=== PATIENT | female | born 1965 | race Asian ===

== ENCOUNTER 2017-02-28 05:58 | Day surgery (SDC) | payer MEDICARE ==
[~2017-02-28] VITALS: Ht 154.9 cm; Wt 74.0 kg
[~2017-02-28 05:58] MED LIST: AMLO-147 PO; BENA40TA41 PO; LURA20TA PO; SERT50TA6 PO; SPIR50TA31 PO; labetalol PO
[2017-02-28] MEDS ORDERED: CARDURA (07:13)
[2017-02-28] MEDS ORDERED: MIDAZOLAM 1 MG/ML 2 ML INJ ONE (07:21)
[2017-02-28] MEDS ORDERED: PROPOFOL 20 ML ONE (07:21)
[2017-02-28] MEDS ORDERED: FENTAnyl 50 MCG/ML VIAL ONE (07:21)
--- NOTE | 2017-02-28 08:18 | OPPN ---
Date/Time of Note Date/Time of Note DATE: 02/28/17 TIME: 08:16 Operative Report Preoperative Diagnosis Screening Postoperative Diagnosis Small rectal polyp was removed Internal hemorrhoids Operation/Procedure Performed Colonoscopy and biopsy Anesthesia Type: MAC Estimated blood loss: none Transfusion Required: no Specimens Rectal polyp Grafts/Implants: none Complications: no GABRIEL LAMAS MD Feb 28, 2017 08:18
[2017-02-28 08:45] VITALS: BP 180/77; PULSE 54; RESP 17
--- NOTE | 2017-02-28 09:25 | GILP ---
DATE OF PROCEDURE: 02/28/2017 PROCEDURE PERFORMED: Colonoscopy and biopsy. SURGEON: Tiffany Finch MD. PREOPERATIVE DIAGNOSIS: Screening colonoscopy. POSTOPERATIVE DIAGNOSES: 1. Colonoscopy all the way to the cecum. 2. Small rectal polyp was removed. 3. Internal hemorrhoids. INDICATION: Ms. Lydia Jimenez is a 51-year-old female patient who was scheduled for screening colonoscopy. The procedure and possible complications were well explained to the patient. She understood and consented to the procedure. DESCRIPTION OF PROCEDURE: Under the influence of anesthesia, the colonoscope was carefully introduced in the rectum, and under direct vision, it was advanced all the way to the cecum. FINDINGS: The patient had a small rectal polyp and it was removed. The patient was noted to have internal hemorrhoids. The prep was somewhat suboptimal. She tolerated the procedure very well, and there was no complication from the procedure. At the end of the procedure, she was awake with stable vital signs and she was discharged home in the care of her family. IMPRESSION: 1. Colonoscopy all the way to the cecum. 2. Poor prep, making the exam somewhat suboptimal. 3. Small rectal polyp was removed using the biopsy forceps. 4. Internal hemorrhoids. PLAN: Next screening colonoscopy in 5 years. Dictated By: MD EMMY Brock/[email or web address]/keyona /Document#: [id number]
--- NOTE | 2017-03-05 11:59 | CONS ---
DATE OF ADMISSION: DATE OF CONSULTATION: 02/22/2017 HISTORY OF PRESENT ILLNESS: Dear Dr. Dias, I thank you very much for this kind referral. Ms. Lydia Coronado is a 51-year-old female patient who has been referred to me for further evaluation of change in the bowel habits. No past medical history of colon neoplasm. Patient never had screening colonoscopy. Appetite has been good and she is not losing any weight. No upper abdominal pain, nausea or vomiting. Not on nonsteroidal anti-inflammatory agents. PAST MEDICAL HISTORY: Status post cholecystectomy. No liver disease. She is hypertensive, not diabetic. No heart disease or lung problem. No kidney disease. She has history of depression, status post hysterectomy. SOCIAL HISTORY: Nonsmoker. No alcohol abuse. FAMILY HISTORY: Patient's father had pancreatic cancer. Uncle had colon cancer. ALLERGIES: NO DRUG ALLERGIES. MEDICATION: 1. Amlodipine 10 mg p.o. daily. 2. Spironolactone 50 mg p.o. daily. 3. Labetalol 200 mg p.o. b.i.d. 4. Benazepril 40 mg p.o. daily. 5. Cardura 2 mg p.o. daily. 6. Latuda 40 mg p.o. daily. 7. Zoloft 100 mg p.o. daily. PHYSICAL EXAMINATION: VITAL SIGNS: She is 5 feet 1 inch tall and weighs 150 pounds. BMI 28. Blood pressure 154/86. CARDIAC: Normal heart sounds. LUNGS: Clear. ABDOMEN: Soft. No masses. Normal bowel sounds. NEUROLOGIC: Normal neurological exam. IMPRESSION: 1. Change in the bowel habits. The patient never had a screening colonoscopy. 2. Hypertension. 3. Depression. 4. Status post cholecystectomy and hysterectomy. 5. Elevated body mass index. PLAN: Screening colonoscopy. Because of the depression and the antidepressants she has been taking, they make her resistant to narcotics, she needs monitored anesthesia care. The procedure and possible complications were well explained to the patient. She understands and consents to the procedure. Patient was advised to lose weight. Dietary consultation was recommended. Follow up with the primary MD for the management of elevated BMI and hypertension. I thank you once again. With warmest personal regards, Patient Name: Lydia Coronado Dictated By: MD EMMY Brock/[email or web address]/[email or web address] /Document#: [id number]
== END 2017-02-28 12:45 | disposition home or self-care (01) ==
LOC: GIL 05:58
PROVIDERS: ATTEND Internal Medicine Gastroenterology
DX: Z12.11 Encounter for screening for malignant neoplasm of colon (principal); K62.1 Rectal polyp; K64.8 Other hemorrhoids; I10 Essential (primary) hypertension; F32.9 Major depressive disorder, single episode, unspecified; Z90.49 Acquired absence of other specified parts of digestive tract; Z90.710 Acquired absence of both cervix and uterus
CPT/HCPCS: 45380; 88305; J2250; J3010

== ENCOUNTER → 2018-05-02 | Outpatient (CLI) | END | disposition home or self-care (01) ==